=== PATIENT | male | born 1995 | race Caucasian/White ===

== ENCOUNTER 2019-08-14 03:16 | Emergency (ER) | payer SELFPAY ==
[~2019-08-14] VITALS: Ht 177.8 cm; Wt 63.5 kg
[2019-08-14 03:30] VITALS: BP 146/98
--- NOTE | 2019-08-14 03:52 | Emergency Room Report ---
History of Present Illness General Chief Complaint: Alcohol Intoxication Source: Patient Present Illness HPI Disclaimer: Please note that this report is being documented using DRAGON technology. This can lead to erroneous entry secondary to incorrect interpretation by the dictating instrument. HPI: 23-year-old male brought in by EMS for alcohol intoxication. The patient states he went to a convenience store to buy some vodka and drinks him on the way home. Stating he was a little drunk he was knocking on some doors as a prank and the police were called. He was brought in for evaluation of alcohol intoxication. He admits to drinking alcohol and denies any other drug use. He denies any headache, chest pain, palpitations, shortness of breath, cough, fever , vomiting or diarrhea or other changes in his health. He is coherent, no dysarthria, ambulating with a steady gait. PMH: Denies PSH: Denies Allergies: Denies Social Hx: Social alcohol use, tobacco use Allergies: Coded Allergies: No Known Allergies (Unverified , 08/14/19) COVID-19 Screening Contact w/high risk pt: No Recent Travel to affected area: No Experienced COVID-19 symptoms?: No COVID-19 Testing performed VAMP WETTER: No Review of Systems All Other Systems: negative except mentioned in HPI Physical Exam Vital Signs Date Time Temp Pulse Resp B/P (MAP) Pulse Ox O2 Delivery O2 Flow Rate FiO2 08/14/19 03:22 98.4 120 16 150/100 (117) 97 Room Air General: Awake and alert, no acute distress HEENT: NC/AT. EOMI. Cardiovascular: RRR. S1 and S2 normal. No murmur appreciated Resp: Normal work of breathing. Skin: Intact. No abrasions, laceration or rash over the exposed skin MSK: Normal tone and bulk. Moving all extremities. No obvious deformity. Ambulating with steady gait Neuro: Awake and alert. Mentating appropriately. No dysarthria. Ambulating with steady gait Medical Decision Making Diagnostic Impression: Primary Impression: Acute alcoholic intoxication ER Course 23-year-old male presents for evaluation of alcohol intoxication. He is ambulating with steady gait, speaking clearly, mentating appropriately and admits to mild alcohol use earlier today. Clinically, he does not seem intoxicated. He was allowed to hydrate in the ED monitored with continued improvement. Do not believe he requires emergent labs or imaging at this time. Stable for outpatient follow-up. Counseled him on the dangers of alcohol abuse. He will follow-up with PMD as needed. Discussed reasons to return to the ED. He understands and agrees with treatment plan. Last Vital Signs Date Time Temp Pulse Resp B/P (MAP) Pulse Ox O2 Delivery O2 Flow Rate FiO2 08/14/19 03:30 99.0 98 16 146/98 97 Room Air Disposition: HOME, SELF-CARE Condition: Stable Patient Instructions: Alcohol Intoxication Additional Instructions: Please follow-up with your primary care doctor in the next 1 to 3 days to discuss this emergency department visit and for reevaluation. If you have any new or worsening symptoms please return to the emergency department for reevaluation. Please note that this report is being documented using PROnoise technology. This can lead to erroneous entry secondary to incorrect interpretation by the dictating instrument. Von Thornton MD Aug 14, 2019 03:52
[2019-08-14 04:26] VITALS: BP 124/68
== END 2019-08-14 04:20 | disposition home or self-care (01) ==
LOC: EDBD 03:16 → EMR 03:50
DX: F10.129 Alcohol abuse with intoxication, unspecified (principal)
CPT/HCPCS: 99283